=== PATIENT | female | born 1990 | race Caucasian/White ===

== ENCOUNTER 2024-10-07 14:55 | Outpatient (CLI) | payer OTHER, SELFPAY ==
--- NOTE | ~2024-10-07 | US_ITS ---
EXAMINATION: US OB /maternal detail DATE: 10/07/2024 16:54 SENIOR OFFICER INDICATION: Anatomy scan TECHNIQUE: Real-time transabdominal obstetric ultrasound. FINDINGS: 3 para 2 There is a single intrauterine gestation in variable presentation. The placenta is posterior, with the edge of the placenta approximately 3.7 cm from the cervix. The cervix measures 3.2 cm in length. cardiac activity and movement is noted with a heart rate of 153 beats per minute. Anatomic parameters are as follows The bladder is visualized and is unremarkable. A three-vessel cord is present. Cord insertion is clearly demonstrated to be on the midline on the submitted image. Bilateral k idneys are present without hydronephrosis. The entirety of the diaphragm is poorly visualized for which follow-up examination is needed. The cervical, thoracic and lumbar spines are covered in their entirety. choroid plexi are visualized, and unremarkable. Unilateral lateral ventricle is visualized measuring 5.4mm. Repeat evaluation to evaluate both lateral ventricles is needed. The falx is visualized. The cerebellum is visualized measuring 21 mm, and is sonographically unremarkable. The cisterna magna measures 4.4 mm in anterior to posterior dimension (normal measurement is 2 to 10 mm). The nuchal fold measures 4.4 mm (greater than 6 mm is considered abnormal). Cine of the four-chamber heart is visualized and is anatomic. Both the right and left ventricular outflow tracts are identified and are unremarkable. Views of the arms, hands, legs and feet were performed and appear grossly unremarkable. Evaluation of the upper lip and nose is adequate to confirm their continuity. The following biometric data were obtained: Biparietal diameter (BPD): 4.8 cm; head circumference (HC): 18.1 cm; abdominal circumference (AC): 16.6 cm; femur length (FL): 3.6 cm. These measurements are concordant. Estimated weight is 419 g +/- 63 g, which correlates with the 65th percentile 02/17/2025 is used as estimated date of delivery. As single measurements, these parameters are each equal to the following estimated gestational ages: BPD: 20 weeks 3 days. HC: 20 weeks 4 days. AC: 21 weeks 5 days. FL: 21 weeks 2 days. estimated gestational age based solely on measurements from this exam is 21 weeks 0 days +/- 1 week 3 days. IMPRESSION: Single intrauterine gestation with an approximate gestational age of 21 weeks and 0 days. Estimated d ue date by ultrasound is 02/17/2025. Repeat evaluation to evaluate and measure both lateral ventricles is needed. The entirety of the diaphragm is poorly visualized for which follow-up examination is needed to confirm continuity. Remainder of the anatomy scan is normal, as detailed above. Reviewed, dictated and finalized at location A. OR OFFICER IMPRESSION: Single intrauterine gestation with an approximate gestational age of 21 weeks a nd 0 days. Estimated due date by ultrasound is 02/17/2025. Repeat evaluation to evaluate and measure both lateral ventricles is needed. The entirety of the diaphragm is poorly visualized for which follow-up examination is needed to confirm continuity. Remainder of the anatomy scan is normal, as detailed above.
== END 2024-10-07 14:56 | disposition home or self-care (01) ==
LOC: GOSHIMG 14:57
PROVIDERS: PCP Obstetrics & Gynecology; Visit Provider Obstetrics & Gynecology
DX: Z36.9 Encounter for antenatal screening, unspecified (principal)
CPT/HCPCS: 76805